=== PATIENT | male | born 1945 | race Caucasian/White ===

== ENCOUNTER 2023-10-22 10:11 | Emergency (ER) | payer MEDICARE, BC ==
[~2023-10-22] VITALS: Ht 182.9 cm; Wt 87.8 kg
[2023-10-22 10:13] VITALS: BP 158/52; PULSE 61; RESP 16; TEMP 98.6; O2SAT 97
== END 2023-10-22 14:24 | disposition left against medical advice (07) ==
LOC: ER 10:11
DX: M79.604 Pain in right leg (principal); M79.89 Other specified soft tissue disorders; Z53.21 Procedure and treatment not carried out due to patient leaving prior to being seen by health care provider

== ENCOUNTER → 2024-01-07 | Outpatient (CLI) | payer MEDICARE, OTHER | END | disposition home or self-care (01) | LOC: RAD 10:48 | PROVIDERS: ATTEND Family Medicine | DX: G31.9 Degenerative disease of nervous system, unspecified (principal); G40.89 Other seizures | CPT/HCPCS: 70450 ==

== ENCOUNTER 2024-07-29 02:29 | Emergency (ER) | payer MEDICARE, OTHER ==
[~2024-07-29] VITALS: Ht 188 cm; Wt 82.7 kg
[2024-07-29 02:30] VITALS: TEMP 98
[2024-07-29] MEDS ORDERED: OXYB5TAB21 PO (03:26)
[2024-07-29] MEDS ORDERED: ATOR20TA PO (03:26)
[2024-07-29] MEDS ORDERED: MELA1LIQ PO (03:26)
[2024-07-29] MEDS ORDERED: PRAM0.754 PO (03:26)
[2024-07-29] MEDS ORDERED: LOSA-415 PO (03:26)
[2024-07-29] MEDS ORDERED: MULT-1085 PO (03:26)
[2024-07-29] MEDS ORDERED: ACET-890 PO (03:26)
[2024-07-29] MEDS ORDERED: RIVA1.5C30 PO (03:26)
[2024-07-29] MEDS ORDERED: APIX5TAB3 PO (03:26)
[2024-07-29] MEDS ORDERED: TRAM50TA2 PO (03:26)
[2024-07-29] MEDS ORDERED: FURO-150 PO (03:26)
[2024-07-29] MEDS ORDERED: CARB1TAB41 PO ×2 (03:26)
[2024-07-29] MEDS ORDERED: DESV100T6 PO (03:26)
[2024-07-29] MEDS: bacitracin 15gm ointment TP ONE (04:45)
[2024-07-29 05:11] VITALS: BP 141/101; PULSE 67; RESP 12; O2SAT 96
== END 2024-07-29 05:14 | disposition home or self-care (01) ==
LOC: ER 02:29
DX: S61.511A Laceration without foreign body of right wrist, initial encounter (principal); S00.01XA Abrasion of scalp, initial encounter; R51.9 Headache, unspecified; Z88.5 Allergy status to narcotic agent; Z79.899 Other long term (current) drug therapy; W18.39XA Other fall on same level, initial encounter; Y93.89 Activity, other specified; Y92.89 Other specified places as the place of occurrence of the external cause; Y99.8 Other external cause status
CPT/HCPCS: 70450; 71045; 72125; 93005; 99284; A4314; A4340; A6212; A6402; A6446; A6449